=== PATIENT | male | born 1995 | race Two or more races ===

== ENCOUNTER 2025-08-01 23:27 | Emergency (ER) | payer SELFPAY ==
[2025-08-01 23:32] VITALS: BMI 29.1
[2025-08-01 23:40] VITALS: BP 129/70; PULSE 102; RESP 14; O2SAT 99
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
== END 2025-08-01 23:55 ==
LOC: SERX 08-02 00:44
PROVIDERS: Emergency Provider Emergency Medicine
DX: Z02.89 Encounter for other administrative examinations (principal); E11.9 Type 2 diabetes mellitus without complications; F10.129 Alcohol abuse with intoxication, unspecified
CPT/HCPCS: 99281